=== PATIENT | female | born 1985 | race Caucasian/White ===

== ENCOUNTER 2020-10-27 11:23 | Outpatient (CLI) | payer BC, SELFPAY ==
[2020-10-27 11:39] LABS: Hemoglobin 13.9 g/dL (12.0-15.0)
== END 2020-10-27 11:24 | disposition home or self-care (01) ==
LOC: ANHSURGERY 11:26
PROVIDERS: PCP Family Medicine Adolescent Medicine; Visit Provider Obstetrics & Gynecology
DX: Z01.818 Encounter for other preprocedural examination (principal); N92.6 Irregular menstruation, unspecified
CPT/HCPCS: 36415; 85014; 85018; 86850; 86900; 86901

== ENCOUNTER 2020-10-29 01:05 | Day surgery (SDC) | payer BC, SELFPAY ==
[2020-10-26 14:08] VITALS: BMI 37.1
--- NOTE | 2020-10-27 07:59 | PM.IMHP ---
H&P: HPI History of Present Illness Date/Time: 10/27/20 07:59 35-year-old admitted for laparoscopy hysteroscopy and dilatation curettage secondary to pelvic pain and irregular bleeding. She had ultrasound showed some thickened endometrial tissue and some free fluid in the abdomen. She has a history of polycystic ovaries and endometriosis risks and benefits reviewed including not exclusive of , aspiration pneumonia, bleeding, transfusion, perforation injury to bowel, bladder, ureters, or other internal organs with need for open laparotomy. She received the [employer] handout entitled laparoscopy, hysteroscopy, dilatation and curettage respectively. She had all questions answered and asked to proceed Chief Complaint: pelvic pain and bleeding Review of Systems Review of Systems: All systems reviewed & are unremarkable except as noted in HPI and below PMFSH Family History Family History Other Family history of elevated blood lipids Family history of malignant neoplasm Social History Social History Smoking packs per day: 0.5 Smoking cigarettes per day: 10.0 Years smoked: 10 Smoking pack-years: 5.00 Smoking status: Current every day smoker Tobacco type: cigarettes Alcohol intake: current Spiritual care concerns: No Meds Home Medications and Allergies Home Medications Medication Instructions Recorded Confirmed Type cariprazine [Vraylar] 3 mg PO DAILY 10/26/20 10/26/20 History clonazepam 0.5 mg PO TID 10/26/20 10/26/20 History ferrous sulfate [FeroSul] 325 mg PO BID 10/26/20 10/26/20 History guanfacine 3 mg PO HS 10/26/20 10/26/20 History lamotrigine 200 mg PO HS 10/26/20 10/26/20 History phentermine 37.5 mg PO DAILY 10/26/20 10/26/20 History trazodone 100 mg PO HS 10/26/20 10/26/20 History zolpidem 10 mg PO HS 10/26/20 10/26/20 History Allergies Allergy/AdvReac Type Severity Reaction Status Date / Time adhesive tape Allergy Mild RASH Verified 10/26/20 14:03 Exam Const: General: no acute distress Eyes: General: appearance normal, both eyes and all related structures Neck: Neck: supple and no JVD Thyroid: thyroid normal Resp: Effort & Inspection: normal respiratory effort Auscultation: clear to auscultation bilaterally Cardio: Rate: regular rate Rhythm: regular rhythm GI: Inspection: non-distended GI Palp: Yes Soft to palpation, No Tenderness to palpation present (GI) and No Guarding due to palpation present (GI) Auscultation: normal bowel sounds : External Female Exam: normal external appearance Speculum Exam - Vagina: normal appearance of the vagina Speculum Exam - Cervix: normal appearance of the cervix Bimanual exam- vagina & uterus: Cervical tenderness present and enlarged Bimanual Exam- Adnexa, other: adnexae mobile and tender bilaterally Skin: General skin exam: no rashes or lesions noted Extrem: General: normal to inspection and no edema Psych: Mental Status: mental status grossly normal Affect: normal affect Assessment and Plan Additional Plan impression: Pelvic pain and bleeding refractory to medical therapy Plan: Laparoscopy/ hysteroscopy/ dilatation and curettage
--- NOTE | 2020-10-28 10:50 | WPDANESEPPF ---
Anes - Initial Pre Proc Eval Procedure: Operation Date: 10/29/20 09:30 Proposed Procedures p Diagnostic Laparoscopy, Hysteroscopy, Dilatation and Curettage - Anmol Ann MD Date/Time: 10/28/20 10:50 Surgeon: Anmol Ann MD Pre Op Diagnosis: pelvic pain, irregular bleeding Patient Data Age: 35 Gender: F Height: 1.68 m Weight: 104.5 kg Allergies Allergy/AdvReac Type Severity Reaction Status Date / Time adhesive tape Allergy Mild RASH Verified 10/29/20 08:14 Home Medications Medication Instructions Recorded Confirmed Type cariprazine [Vraylar] 3 mg PO DAILY 10/26/20 10/29/20 History clonazepam 0.5 mg PO TID 10/26/20 10/29/20 History ferrous sulfate [FeroSul] 325 mg PO BID 10/26/20 10/29/20 History guanfacine 3 mg PO HS 10/26/20 10/29/20 History lamotrigine 200 mg PO HS 10/26/20 10/29/20 History phentermine 37.5 mg PO DAILY 10/26/20 10/29/20 History trazodone 100 mg PO HS 10/26/20 10/29/20 History zolpidem 10 mg PO HS 10/26/20 10/29/20 History hydrocodone-acetaminophen 1 tablet PO Q4H PRN #20 tablet 10/29/20 Rx omeprazole magnesium [Acid Fagot Heater 20 mg PO DAILY PRN 10/29/20 10/29/20 History (omeprazole)] Patient hx anesthesia problems: none Family hx anesthesia problems: none PMFSH Past Medical History Medical History (Updated 10/29/20 @ 07:10 by Anmol Ann MD) Anxiety Depression SREEKANTH (obstructive sleep apnea) Surgical History Surgical History (Updated 10/28/20 @ 10:51 by Paulino Murillo DO) History of sleeve gastrectomy Family History Family History Other Family history of elevated blood lipids Family history of malignant neoplasm Social History Social History Smoking packs per day: 0.5 Smoking cigarettes per day: 10.0 Years smoked: 10 Smoking pack-years: 5.00 Smoking status: Current every day smoker Tobacco type: cigarettes Alcohol intake: current Living arrangements: with family Spiritual care concerns: No Anes - Eval Final PreProcedure Day of Procedure 10/28/20 10:50 Patient weight: obese Heart: regular rate and rhythm Lungs: clear to auscultation and normal air movement Airway: Mallampati scale class II Neurological: alert and oriented Last oral intake: >/= 8 hours ASA classification: III Emergent: no Anesthetic plan: proceed Anesthesia type and monitoring: general ETT and standard monitoring Informed Consent: The patient's anesthetic plan and its attendant risks and benefits were discussed with the patient/family/POA. Questions were solicited and answers provided to the satisfaction of the patient/family/POA.
[2020-10-29] VITALS (10 sets, daily range): BP systolic 115–144; BP diastolic 42–81; PULSE 62–88; RESP 14–22; TEMP 36.2–36.4; O2SAT 94–100; BMI 37.7
--- NOTE | 2020-10-29 07:10 | WPDHPUPDATE1 ---
History and Physical Update Update Date/Time: 10/29/20 07:10 History and Physical has been reviewed, including an updated exam of the patient. There are NO changes in the patient's condition. Risks, benefits, and alternatives have been discussed and questions answered. Patient agrees to proceed with procedure.
[2020-10-29] MEDS: LACTATED RINGERS 1,000 ML 30 ML IV CONT ×2 (08:31→10:06)
[2020-10-29] MEDS: KETOROLAC 15 MG/ML VIAL (*BKC) IV PUSH ×2 (08:34→11:04)
[2020-10-29] MEDS: ACETAMINOPHEN 500 MG TABLET 1000 MG PO (08:34)
--- NOTE | 2020-10-29 10:01 | W.PM.PROC2 ---
Procedure Note - Detailed Date of Procedure 10/29/20 Pre-op Diagnosis pelvic pain, irregular bleeding Post-op Diagnosis other (Stage I endometriosis, right ovarian cyst, uterine polyps) Procedure Performed Laparoscopy/destruction of right ovarian cyst/destruction of endometriosis/hysteroscopy/dilatation curettage/polypectomy Surgeon Anmol Ann MD Anesthesia general Indications Set 35-year-old patient with pelvic pain right ovarian cyst and irregular excessive bleeding Findings On laparoscopy a normal-appearing uterus was seen. There was a moderate size right ovarian cyst. Small areas of powder burn endometriosis along the right uterosacral ligament On hysteroscopy 2 small uterine polyps were noted.. Each fallopian tube opening could be seen. Description of Procedure The patient was prepped and draped in the normal sterile fashion placed in the dorsal lithotomy position. Under excellent general endotracheal anesthesia weighted speculum placed in posterior fornix vagina. Anterior lip of the cervix grasped with a single-tooth tenaculum. The Giang's cannula was inserted to the cervix and attached to the single-tooth to be used later for uterine manipulation. The bladder was emptied of clear urine. The weighted speculum was removed and the gloves were changed. An infraumbilical incision was made in the Veress needle passed in the abdomen. The abdomen filled with CO2 gas [id number]. The 5mm trocar advanced under direct visualization assuring no injury. The patient was placed in Trendelenburg and a suprapubic incision made. The 5mm trocar was advanced under direct visualization assuring no injury. The above findings were seen. The right ovarian cyst was opened in linear fashion and drained of clear follicular fluid. Irrigation was undertaken. The small areas of powder burn endometriosis were photo documented and then destroyed with monopolar cautery at 35 w per 2nd. No other abnormalities were seen. The lower site removed. The gas removed from the abdomen. The upper site removed. The incisions closed with 4-0 Monocryl and glue. Attention was turned to the addiction treatment counselor. The uterus sounded to 8cm. Serial dilatation with fragmented dilators performed. This was followed by passage of the 5mm visualizing hysteroscope using normal saline as visualizing medium. Thick irregular endometrium was seen. Two small polyps were seen and these were grasped with the polyp forceps. The uterus was then scraped over the entire 360? until a good grating sound was heard. The instruments were then removed and all sponge, needle, instrument counts were correct. The patient was awakened and went to recovery in satisfactory condition there were no immediate complications. Estimated Blood Loss 5 Drains No Packing No Pathology yes Complications No immediate complications Condition stable Disposition PACU
[2020-10-29] MEDS: fentaNYL CITRATE INJ (*CRX) 100 MCG/2 ML VIAL 25 MCG IV PUSH ×4 (10:11→10:23)
[2020-10-29] MEDS: HYDROmorphone HCL INJ (*CRX) 1 MG/ML SYR 0.5 MG IV PUSH ×4 (10:30→10:52)
[2020-10-29] MEDS: oxyCODONE HCL (*CRX) 5 MG TAB IR PO (11:36)
== END 2020-10-29 12:00 | disposition home or self-care (01) ==
PROVIDERS: PCP Family Medicine Adolescent Medicine; Visit Provider Obstetrics & Gynecology
PROC: 0UDB8ZZ Extraction of Endometrium, Via Natural or Artificial Opening Endoscopic (ICD-10-PCS; CPT 58558; principal; 2020-10-29 09:30)
DX: R10.2 Pelvic and perineal pain (principal); N93.9 Abnormal uterine and vaginal bleeding, unspecified; N83.201 Unspecified ovarian cyst, right side; N80.3 Endometriosis of pelvic peritoneum; N84.0 Polyp of corpus uteri; G47.33 Obstructive sleep apnea (adult) (pediatric); F41.8 Other specified anxiety disorders; Z98.84 Bariatric surgery status; F17.210 Nicotine dependence, cigarettes, uncomplicated; E66.9 Obesity, unspecified; Z68.37 Body mass index [BMI] 37.0-37.9, adult
CPT/HCPCS: 58558; 58662; 36415; 85014; 85018; 86850; 86900; 86901; 88305; A9270; J0330; J1100; J1170; J1885; J2250; J2405; J2704; J3010; J7030; J7120